=== PATIENT | male | born 1990 | race Caucasian/White ===

== ENCOUNTER → 2022-01-22 09:36 | Outpatient (CLI) | payer BC, SELFPAY ==
--- NOTE | ~2022-01-22 | US_ITS ---
US right upper quadrant INDICATION: Elevated liver enzymes PROCEDURE: Realtime right upper abdominal ultrasound. COMPARISON: No prior studies for comparison. FINDINGS: The pancreas is normal without focal mass or pancreatic ductal dilation. Liver echotexture is increased, consistent with fatty infiltration. There is a small hypodense lesion of the liver rahul suring 1.6 x 1.4 x 1.2 cm. Correlation with contrast-enhanced CT is recommended. There is normal dir ectional flow in the portal vein. There is mild gallbladder wall thickening. No gallstones are identified. Common bile duct measures 4 mm. No sonographic Angeles's sign. IMPRESSION: 1: Focal hypoechoic 1.6 cm liver mass. Correlation with contrast-enhanced CT recommended. 2: Hepatic steatosis. 3: Mild gallbladder wall thickening. This could indicate interstitial edema, chronic liver disease or chronic cholecystitis. Reviewed, dictated and finalized at location A. IMPRESSION: 1: Focal hypoechoic 1.6 cm liver mass. Correlation with contrast-enhanced CT re commended. 2: Hepatic steatosis. 3: Mild gallbladder wall thickening. This could indicate interstitial edema, ch ronic liver disease or chronic cholecystitis.
== END ==
PROVIDERS: PCP Student in an Organized Health Care Education/Training Program; Visit Provider Student in an Organized Health Care Education/Training Program
DX: R74.8 Abnormal levels of other serum enzymes (principal); K76.0 Fatty (change of) liver, not elsewhere classified
CPT/HCPCS: 76705

== ENCOUNTER → 2022-02-14 13:22 | Outpatient (CLI) | payer BC, SELFPAY ==
--- NOTE | ~2022-02-14 | CT_ITS ---
EXAMINATION: CT abdomen wo/w con EXAM DATE: 02/14/2022 13:44 INDICATION: Liver Lesion TECHNIQUE: Spiral CT of the abdomen was performed without and then with intravenous injection of 100 mL Omnipaque 350. Arterial and venous postcontrast scans obtained. Axial, coronal and sagittal image s of the abdomen were reviewed. The dose-length product (DLP) for this examination was 1902.52 mGy-c m. The exposure was tailored according to patient size (auto mA exposure control), and iterative rec onstruction (ASIR) was used as additional dose reduction technique. Correlation is made to ultrasound dated 01/22/2022. FINDINGS: There is hepatic steatosis. There are several regions of focal fatty sparing, one of which likely correlates to the ultrasound finding given that no masses identified. Pancreas, adrenal glands , spleen are unremarkable. Gallbladder is unremarkable. No biliary obstruction. No nephrolithiasis. Portal and splenic veins are patent. Kidneys enhance symmetrically. There is no hydronephrosis. There is no retroperitoneal lymphadenopathy. The appendix is normal. The stomach and small bowel are unremarkable. There is expected amount of c olonic stool. No free intraperitoneal gas. The heart is normal in size. There are no pericardial or pleural effusions. The lung bases are unremarkable. There are no osteoblastic or osteolytic les ions identified. IMPRESSION: Hepatic steatosis with regions of focal fatty sparing. No liver mass. Reviewed, dictated and finalized at location B. IMPRESSION: Hepatic steatosis with regions of focal fatty sparing. No liver mas s.
== END ==
PROVIDERS: PCP Student in an Organized Health Care Education/Training Program; Visit Provider Student in an Organized Health Care Education/Training Program
DX: K76.9 Liver disease, unspecified (principal); K76.0 Fatty (change of) liver, not elsewhere classified
CPT/HCPCS: 74170; Q9967